=== PATIENT | male | born 1970 | race Caucasian/White ===

== ENCOUNTER → 2021-04-10 | Outpatient (CLI) | payer OTHER | LOC: M.CT 10:59 | PROVIDERS: ATTEND Internal Medicine Cardiovascular Disease | DX: Z13.6 Encounter for screening for cardiovascular disorders (principal); I25.10 Atherosclerotic heart disease of native coronary artery without angina pectoris ==

== ENCOUNTER → 2021-05-09 | Outpatient (CLI) | payer OTHER ==
--- NOTE | 2021-05-24 22:20 | SLEEP ---
[place] [address] SLEEP STUDY REPORT Name: [facility]LLERS Room: [facility]#: [id number] Admission: 05/09/21 Attend Phys: Lydia Lennon RN Discharge: Date of : 74 Report #: [id number] THIS REPORT FOR: cc: Branden Goins Steve T. DO Pervez, Adeel MD ~ DATE OF STUDY: 05/09/2021 HOME SLEEP STUDY INTERPRETATION: Total duration of the study is 418 minutes. During this time duration, we recorded multiple sleep related respiratory events. These included 10 central apneas, 74 obstructive apneas, 119 hypopneas, no mixed apneas. Overall apnea-hypopnea index is 29.1. Body position data indicates that the patient is lying on the right side throughout the sleep study. There are also multiple desaturations recorded. Overall, the patient spent 31.1 minutes below an O2 saturation of 90%, out of which 2.7 minutes were spent with an O2 saturation less than 85%. Mean heart rate was 75. IMPRESSION: Moderate obstructive sleep apnea with an apnea-hypopnea index of 29.1. Findings just miss the criteria for severe obstructive sleep apnea. There is also nocturnal hypoxemia as described above and the patient is noted to be lying on the right side throughout the sleep study. RECOMMENDATIONS: Considering a significant elevation in apnea-hypopnea index of 29.1 as well as the presence of significant number of central apneas, I would favor proceeding to an in-lab sleep study for positive airway pressure titration in preference to the use of a CPAP auto titrated device. Clinical correlation is advised regarding whether weight loss should be considered. This entire sleep study was reviewed by board certified sleep physician. <ELECTRONICALLY SIGNED> By: Tommy Sanchez MD 05/24/21 2220 [id number] Sanchez MD /nt
== END ==
LOC: M.PUL 08:54
PROVIDERS: ATTEND Nurse Practitioner
DX: G47.33 Obstructive sleep apnea (adult) (pediatric) (principal); R06.83 Snoring; R40.0 Somnolence